=== PATIENT | male | born 1945 | race Hispanic/Latino ===

== ENCOUNTER 2018-06-19 01:08 | Emergency (ER) | payer MEDICARE, OTHER ==
[2018-06-19 02:06] VITALS: BMI 25.8
[2018-06-19 02:16] VITALS: BP 135/90; PULSE 47; RESP 20; TEMP 98.2; O2SAT 98
[2018-06-19] MEDS ORDERED: Naproxen 550 mg Tab PO STA (02:17)
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
--- NOTE | 2018-06-19 09:44 | RAD ---
Date of service: 06/19/2018 PROCEDURE: Radiographs of the Chest and Left Ribs. HISTORY: left sided pain COMPARISON: None available. TECHNIQUE: Frontal radiograph of the chest and multiple oblique radiographs of the left ribs were obtained. FINDINGS: LEFT RIBS: Nondisplaced fracture identified at the lateral segments of the left 8th and 9th ribs. LUNGS: Linear atelectasis or fibrosis inferior left lung zone laterally. No infiltrates bilaterally. No pulmonary vascular congestion. PLEURA: No pneumothorax or pleural fluid. CARDIOVASCULAR: Normal sized heart. No pulmonary vascular congestion. OTHER FINDINGS: None. IMPRESSION: Nondisplaced fractures distal/lateral segments left 8th and 9th ribs. Limited left basilar pulmonary fibrosis noted. Concordant preliminary report from [facility], 06/19/2018.
--- NOTE | 2018-06-19 09:54 | CARD ---
APPROVED REPORT Date of service: 06/19/2018 EKG Measurement Heart [id number] <Conclusion> Marked sinus bradycardia with 1st degree AV block Abnormal ECG
== END 2018-06-19 05:49 | disposition home or self-care (01) ==
LOC: ED 01:08 → MERGE 01:08 → ED 05:49
DX: S22.42XA Multiple fractures of ribs, left side, initial encounter for closed fracture (principal); X58.XXXA Exposure to other specified factors, initial encounter; Y92.9 Unspecified place or not applicable